=== PATIENT | male | born 1990 | race Two or more races ===

== ENCOUNTER 2022-11-14 12:09 | Emergency (ER) | payer SELFPAY ==
--- NOTE | ~2022-11-14 | CT_ITS ---
EXAMINATION: CT ABDOMEN AND PELVIS WITHOUT CONTRAST CLINICAL INFORMATION: 32-year-old male with right flank and right lower quadrant pain and hematuria. COMPARISON: None TECHNIQUE: Multidetector volumetric imaging was performed from the superior aspect of the liver through the pubic symphysis. Sagittal and coronal reformatted images were obtained on the technologist's workstation. This CT examination was performed using dose optimization techniques as appropriate, variously including the following: *Automated exposure control *Adjustment of mA and/or kV according to patient size (this includes techniques or standardized protocols for targeted exams where dose is matched to indication/reason for exam; i.e. extremities or head) *Use of iterative reconstruction technique DLP: 776 mGy-cm FINDINGS: LUNG BASES: Unremarkable. LIVER: The liver has normal size, shape, and attenuation. No evidence of liver mass. GALLBLADDER AND BILIARY TREE: Gallbladder is without radiopaque stones, wall thickening or pericholecystic fluid. No dilated bile ducts. PANCREAS: Normal. No edema, pancreatic ductal dilatation or mass. SPLEEN: Normal. ADRENAL GLANDS: Normal. KIDNEYS AND URETERS: The kidneys have normal size, attenuation and cortical thickness. No perinephric edema or perinephric fluid collection. Mild left hydronephrosis and proximal hydroureter are caused by a stone of approximately 0.2 x 0.4 x 0.5 cm size at the L2-L3 level of the proximal ureter. No right sided hydronephrosis. No evidence of right sided urinary tract stones. Multiple phleboliths are present within the lower pelvis. However, there are no convincing stones in either distal ureter BLADDER: Unremarkable. BOWEL AND PERITONEUM: Stomach is unremarkable. No dilated loops of bowel. The appendix is normal. No overt bowel wall thickening or mesenteric fat stranding. No free fluid or pneumoperitoneum. ABDOMINAL WALL: There is mild protrusion of fat into the umbilicus. VASCULATURE: Unremarkable. LYMPH NODES: No pathologic sized lymph nodes in the abdomen or pelvis. No inguinal lymphadenopathy. PELVIC VISCERA: Prostate gland is normal. No pelvic mass or pelvic free fluid. MUSCULOSKELETAL: Unremarkable. CT/CT abdomen pelvis wo IV con IMPRESSION: * Mild left hydroureteronephrosis is caused by a stone within the proximal ureter. There is no right-sided hydronephrosis. * Urinary bladder is unremarkable.
--- NOTE | 2022-11-14 12:32 | ED.ABDPAIN ---
HPI - Abdominal Pain General Chief Complaint: Abdominal Pain <KIMBER Mohan - Last Filed: 11/14/22 12:38> Stated Complaint: Blood in urine/Lower abd pain <KIMBER Mohan - Last Filed: 11/14/22 12:38> Time Seen by Provider: 11/14/22 14:40 <KIMBER Mohan - Last Filed: 11/14/22 12:38> Source: patient <Rhina Saunders NP - Last Filed: 11/14/22 16:45> Mode of arrival: ambulatory <Rhina Saunders NP - Last Filed: 11/14/22 16:45> Limitations: no limitations <FARHAT Hanson Last Filed: 11/14/22 16:45> History of Present Illness HPI narrative: 32-year-old male with a history of asthma here with sudden onset left flank pain with radiation to the left lower abdomen which began earlier today. Patient tells me now pain is improved. Still has slight discomfort but overall much better. No associated nausea, vomiting, diarrhea, urinary symptoms. Noted some blood in the urine. Patient denies penile discharge, testicular pain, dysuria or frequency <FARHAT Hanson Last Filed: 11/14/22 16:45> Related Data Home Medications: Previous Rx's Medication Instructions Recorded ibuprofen 600 mg tablet 600 mg PO Q8H PRN pain #30 tabs 11/14/22 oxycodone 5 mg tablet 5 mg PO Q8H PRN pain #8 tabs 11/14/22 tamsulosin 0.4 mg capsule (Flomax) 0.4 mg PO DAILY #30 caps 11/14/22 <KIMBER Mohan - Last Filed: 11/14/22 12:38> Allergies/Adverse Reactions: Allergies Allergy/AdvReac Type Severity Reaction Status Date / Time No Known Allergies Allergy Verified 11/14/22 12:33 <KIMBER Mohan Last Filed: 11/14/22 12:38> Review of Systems Review of Systems Yes all other systems are reviewed and are negative <FARHAT Hanson Last Filed: 11/14/22 16:45> Constitutional: Reports no additional constitutional complaints, Denies body ache(s), Denies chills, Denies fever(s), Denies headache(s) and Denies weakness <Rhina Saunders NP - Last Filed: 11/14/22 16:45> Eyes: Reports no additional eye complaints and Denies change in vision <Rhina Saunders NP - Last Filed: 11/14/22 16:45> Reports system reviewed and no additional complaints, except as documented, Denies dizziness, Denies headache(s), Denies nasal congestion, Denies nasal discharge and Denies neck pain <Rhina Saunders NP - Last Filed: 11/14/22 16:45> Cardiovascular: Reports no additional cardiovascular complaints, Denies chest pain, Denies leg edema and Denies dyspnea <Rhina Saunders NP - Last Filed: 11/14/22 16:45> Respiratory: Reports no additional respiratory complaints, Denies cough and Denies dyspnea <Rhina Saunders NP - Last Filed: 11/14/22 16:45> Gastrointestinal: Reports no additional gastrointestinal complaints, Reports abdominal pain, Denies diarrhea, Denies nausea and Denies vomiting <Rhina Saunders NP - Last Filed: 11/14/22 16:45> Genitourinary: Denies urinary incontinence <Rhina Saunders NP - Last Filed: 11/14/22 16:45> Musculoskeletal: Reports no additional musculoskeletal complaints, Reports back pain, Denies arthralgias, Denies joint swelling, Denies neck pain, Denies numbness and Denies tingling <Rhina Saunders NP - Last Filed: 11/14/22 16:45> Skin/Breast: Reports system reviewed and no additional complaints, except as docu and Denies rash <Rhina Saunders NP - Last Filed: 11/14/22 16:45> Reports system reviewed and no additional complaints, except as documented, Denies dizziness, Denies headache(s), Denies numbness, Denies tingling and Denies weakness <Rhina Saunders NP - Last Filed: 11/14/22 16:45> PMFSH Past Medical History Attestation statement: The following information was validated with the patient. <Rhina Saunders NP - Last Filed: 11/14/22 16:45> Source: old records reviewed and nursing notes reviewed <Rhina Saunders NP - Last Filed: 11/14/22 16:45> Social History Social History: Social History Advance Directives: Yes Advance Directives Information Provided: Yes Advance Directives on File: No <KIMBER Mohan - Last Filed: 11/14/22 12:38> Physical Exam ED Vital Signs: Vital Signs - 24 hr 11/14/22 12:34 Temperature 97.4 F Pulse Rate 77 Respiratory Rate 18 Blood Pressure 144/99 H Pulse Oximetry 98 Oxygen Delivery Method Room Air BMI result Body Mass Index 36.6 <KIMBER Mohan - Last Filed: 11/14/22 12:38> Vital Signs - 24 hr 11/14/22 12:34 Temperature 97.4 F Pulse Rate 77 Respiratory Rate 18 Blood Pressure 144/99 H Pulse Oximetry 98 Oxygen Delivery Method Room Air BMI result Body Mass Index 36.6 <Rhina Saunders NP - Last Filed: 11/14/22 16:45> Const General: cooperative, healthy appearing, comfortable and no acute distress <Rhina Saunders NP - Last Filed: 11/14/22 16:45> Orientation/consciousness: patient oriented x3 <Rhina Saunders NP - Last Filed: 11/14/22 16:45> Limitations: no limitations <Rhina Saunders NP - Last Filed: 11/14/22 16:45> HENMT Head: Yes normal to inspection <Rhina Saunders NP - Last Filed: 11/14/22 16:45> Ears: hearing grossly normal bilaterally <Rhina Saunders NP - Last Filed: 11/14/22 16:45> Eyes General: appearance normal, both eyes and all related structures <Rhina Saunders NP - Last Filed: 11/14/22 16:45> Neck Neck: Yes normal visual inspection <Rhina Saunders NP - Last Filed: 11/14/22 16:45> Chest Chest palpation & inspection: normal inspection of the chest <Rhina Saunders NP - Last Filed: 11/14/22 16:45> Resp Effort & Inspection: normal respiratory effort <Rhina Saunders NP - Last Filed: 11/14/22 16:45> Auscultation: clear to auscultation bilaterally <Rhina Saunders NP - Last Filed: 11/14/22 16:45> Cardio Rate: regular rate <Rhina Saunders NP - Last Filed: 11/14/22 16:45> Rhythm: regular rhythm <Rhina Saunders NP - Last Filed: 11/14/22 16:45> Peripheral pulses: Peripheral pulses 2+ throughout <Rhina Saunders NP - Last Filed: 11/14/22 16:45> GI Inspection: Yes normal to inspection <Rhina Saunders NP - Last Filed: 11/14/22 16:45> Palpation (GI): Soft to palpation and Tenderness to palpation present (GI) (LLQ-no rebound or guard) <Rhina Saunders NP - Last Filed: 11/14/22 16:45> General: Yes CVA tenderness (Left) <Rhina Saunders NP - Last Filed: 11/14/22 16:45> Back/Spine/Pelvis Back: CVA tenderness (Left) <Rhina Saunders NP - Last Filed: 11/14/22 16:45> Thoracic/Lumbar Spine: thoracic and lumbar spine normal to inspection <hRina Saunders NP - Last Filed: 11/14/22 16:45> Neuro General: patient oriented x3 <Rhina Saunders NP - Last Filed: 11/14/22 16:45> Course Course Course Narrative: RME--32 yo M w/no sig PMHx c/o hematuria w/ suprapubic/RLQ abd pain radiating to R flank x yesterday. Denies fever, chills, dysuria denies excessive working out/exercises R CVAT and R sided abd ttp noted on exam UA, Labs, CTAP and IVF ordered <KIMBER Mohan - Last Filed: 11/14/22 12:38> Reevaluation(s) Reevaluation #1: CT shows left renal colic. UA shows microscopic hematuria. No signs of infection. Labs are unremarkable. Patient reports pain has improved since being here. Will give IM Toradol and reassess. <Rhina Saunders NP - Last Filed: 11/14/22 16:45> Reevaluation #2: 1615-patient with pain well controlled. Tolerating p.o.. Patient be discharged home with urology follow-up and strict return precautions. Reviewed worrisome signs and symptoms when to return to the emergency room. Comfortable plan for discharge home. <Rhina Saunders NP - Last Filed: 11/14/22 16:45> Medical Decision Making Medical Decision Making [facility] Narrative: 32-year-old male here with left flank pain with radiation to the left lower abdomen with hematuria with sudden onset Will check labs, UA, CT. Will provide analgesia <Rhina Saunders NP - Last Filed: 11/14/22 16:45> Differential Diagnosis Differential Diagnoses: The differential diagnosis associated with the presentation includes <Rhina Saunders NP - Last Filed: 11/14/22 16:45> Renal colic <Rhina Saunders NP - Last Filed: 11/14/22 16:45> Lab Data [facility] Lab Attestation statement: I reviewed the patient's lab results. <Rhina Saunders NP - Last Filed: 11/14/22 16:45> Result Diagrams: : 11/14/22 12:48 11/14/22 12:48 <KIMBER Mohan - Last Filed: 11/14/22 12:38> Labs: Lab Results 11/14/22 11/14/22 11/14/22 Range/Units 12:48 12:48 13:13 WBC 4.5 L (4.8-10.8) X10*3/uL RBC 4.93 (4.60-5.80) X10*6/uL Hgb 13.7 L (14.0-18.0) g/dl Hct 41.1 L (42.0-52.0) % MCV 83.4 (80.0-98.0) fL MCH 27.8 (27.0-33.0) pg MCHC 33.3 (31.0-36.0) g/dl RDW 12.8 (11.0-16.0) % Plt Count 230 (160-400) X10*3/uL MPV 9.9 (9.4-12.4) fL Immature Gran % (Auto) 0.2 (0.0-0.4) % Neut % (Auto) 46.7 (45-73) % Lymph % (Auto) 40.0 (20-40) % [place] % (Auto) 10.6 (2-11) % Eos % (Auto) 1.6 (0-4) % Baso % (Auto) 0.9 (0-2) % Lymph # (Auto) 1.8 (1.2-4.9) X10*3/uL [place] # (Auto) 0.5 (0.1-1.2) X10*3/uL Eos # (Auto) 0.1 (0.0-0.4) X10*3/uL Baso # (Auto) 0.0 (0.0-0.2) X10*3/uL Abs Immat Gran (auto) 0.01 (0.00-0.03) X10*3/uL Absolute Neuts (auto) 2.1 (2.0-8.3) x10*3/uL Absolute Nucleated RBC 0.000 (0.0-0.012) X10*3/uL Nucleated RBC % (auto) 0.0 (0.0-0.2) /100WBC Sodium 138 (135-145) mmol/L Potassium 4.4 (3.3-5.1) mmol/L Chloride 104 (96-108) mmol/L Carbon Dioxide 29 (22-29) mmol/L Anion Gap 9 L (12-20) BUN 12 (9-16) mg/dL Creatinine 1.37 (0.5-1.4) mg/dL Estim Creat Clear Calc 97.4 Estimated GFR > 60 Random Glucose 88 (60-115) mg/dL Calcium 9.7 (8.4-10.2) mg/dL Total Bilirubin 0.4 (0.0-1.0) mg/dL Direct Bilirubin < 0.2 (0.0-0.5) mg/dL AST 28 (5-37) U/L ALT 34 (0-40) U/L Alkaline Phosphatase 65 (39-117) U/L Total Creatine Kinase 229 H (38-174) U/L Total Protein 7.4 (6.5-8.0) g/dL Albumin 4.3 (3.5-5.0) g/dL Lipase 17 (8-78) U/L Urine Color Dark Yellow Urine Appearance Cloudy Urine pH 8.0 (5.0-9.0) Ur Specific [place] 1.020 (1.005-1.025) Urine Protein Trace (Neg-Trace) mg/dL Urine Glucose (UA) Negative (Negative) mg/dL Urine Ketones Negative (Negative) mg/dL Urine Blood Large (3+) H (Negative) Urine Nitrite Negative (Negative) Ur Leukocyte Esterase Negative (Negative) Urine RBC >20 H (0-2) /HPF Urine WBC 0-5 (0-5) /HPF Ur Squamous Epith Cells 0-2 (0-2) /HPF Urine Bacteria None Seen (None Seen) Hyaline Casts 0-2 (0-2) /LPF <KIMBER Mohan - Last Filed: 11/14/22 12:38> Lab Results 11/14/22 11/14/22 11/14/22 Range/Units 12:48 12:48 13:13 WBC 4.5 L (4.8-10.8) X10*3/uL RBC 4.93 (4.60-5.80) X10*6/uL Hgb 13.7 L (14.0-18.0) g/dl Hct 41.1 L (42.0-52.0) % MCV 83.4 (80.0-98.0) fL MCH 27.8 (27.0-33.0) pg MCHC 33.3 (31.0-36.0) g/dl RDW 12.8 (11.0-16.0) % Plt Count 230 (160-400) X10*3/uL MPV 9.9 (9.4-12.4) fL Immature Gran % (Auto) 0.2 (0.0-0.4) % Neut % (Auto) 46.7 (45-73) % Lymph % (Auto) 40.0 (20-40) % [place] % (Auto) 10.6 (2-11) % Eos % (Auto) 1.6 (0-4) % Baso % (Auto) 0.9 (0-2) % Lymph # (Auto) 1.8 (1.2-4.9) X10*3/uL [place] # (Auto) 0.5 (0.1-1.2) X10*3/uL Eos # (Auto) 0.1 (0.0-0.4) X10*3/uL Baso # (Auto) 0.0 (0.0-0.2) X10*3/uL Abs Immat Gran (auto) 0.01 (0.00-0.03) X10*3/uL Absolute Neuts (auto) 2.1 (2.0-8.3) x10*3/uL Absolute Nucleated RBC 0.000 (0.0-0.012) X10*3/uL Nucleated RBC % (auto) 0.0 (0.0-0.2) /100WBC Sodium 138 (135-145) mmol/L Potassium 4.4 (3.3-5.1) mmol/L Chloride 104 (96-108) mmol/L Carbon Dioxide 29 (22-29) mmol/L Anion Gap 9 L (12-20) BUN 12 (9-16) mg/dL Creatinine 1.37 (0.5-1.4) mg/dL Estim Creat Clear Calc 97.4 Estimated GFR > 60 Random Glucose 88 (60-115) mg/dL Calcium 9.7 (8.4-10.2) mg/dL Total Bilirubin 0.4 (0.0-1.0) mg/dL Direct Bilirubin < 0.2 (0.0-0.5) mg/dL AST 28 (5-37) U/L ALT 34 (0-40) U/L Alkaline Phosphatase 65 (39-117) U/L Total Creatine Kinase 229 H (38-174) U/L Total Protein 7.4 (6.5-8.0) g/dL Albumin 4.3 (3.5-5.0) g/dL Lipase 17 (8-78) U/L Urine Color Dark Yellow Urine Appearance Cloudy Urine pH 8.0 (5.0-9.0) Ur Specific [place] 1.020 (1.005-1.025) Urine Protein Trace (Neg-Trace) mg/dL Urine Glucose (UA) Negative (Negative) mg/dL Urine Ketones Negative (Negative) mg/dL Urine Blood Large (3+) H (Negative) Urine Nitrite Negative (Negative) Ur Leukocyte Esterase Negative (Negative) Urine RBC >20 H (0-2) /HPF Urine WBC 0-5 (0-5) /HPF Ur Squamous Epith Cells 0-2 (0-2) /HPF Urine Bacteria None Seen (None Seen) Hyaline Casts 0-2 (0-2) /LPF <Rhina Saunders NP - Last Filed: 11/14/22 16:45> Independent Interpretation I performed an independent interpretation of an: CT Scan (Independently reviewed CT scan which shows left renal colic at the proximal ureter) <Rhina Saunders NP - Last Filed: 11/14/22 16:45> Radiology Impression Discussion of test interpretation with radiology: I have reviewed the radiologist's reading. <Rhina Saunders NP - Last Filed: 11/14/22 16:45> Radiologist Impression: FINDINGS: LUNG BASES: Unremarkable. LIVER: The liver has normal size, shape, and attenuation.? No evidence of liver mass. GALLBLADDER AND BILIARY TREE: Gallbladder is without radiopaque stones, wall thickening or pericholecystic fluid.? No dilated bile ducts. PANCREAS: Normal. No edema, pancreatic ductal dilatation or mass.? SPLEEN: Normal.? ADRENAL GLANDS: Normal.? KIDNEYS AND URETERS: The kidneys have normal size, attenuation and cortical thickness. No perinephric edema or perinephric fluid collection. Mild left hydronephrosis and proximal hydroureter are caused by a stone of approximately 0.2 x 0.4 x 0.5 cm size at the L2-L3 level of the proximal ureter. No right sided hydronephrosis. No evidence of right sided urinary tract stones. Multiple phleboliths are present within the lower pelvis. However, there are no convincing stones in either distal ureter BLADDER:? Unremarkable. BOWEL AND PERITONEUM: Stomach is unremarkable. No dilated loops of bowel. The appendix is normal. No overt bowel wall thickening or mesenteric fat stranding. No free fluid or pneumoperitoneum. ABDOMINAL WALL: There is mild protrusion of fat into the umbilicus.? VASCULATURE: Unremarkable. LYMPH NODES: No pathologic sized lymph nodes in the abdomen or pelvis. No inguinal lymphadenopathy. PELVIC VISCERA: Prostate gland is normal. No pelvic mass or pelvic free fluid. MUSCULOSKELETAL: Unremarkable.? CT/CT abdomen pelvis wo IV con IMPRESSION: *? Mild left hydroureteronephrosis is caused by a stone within the proximal ureter.? There is no right-sided hydronephrosis. *? Urinary bladder is unremarkable. ? <Rhina Saunders NP - Last Filed: 11/14/22 16:45> Medications Administered Discontinued Medications Generic Name Dose Route Start Last Admin Trade Name Freq PRN Reason Stop Dose Admin Sodium Chloride 1,000 mls @ 999 mls/hr 11/14/22 12:45 11/14/22 16:29 Ns IV 11/14/22 13:45 Infused .Q1H1M CINTIA Infusion Ketorolac Tromethamine 30 mg 11/14/22 14:46 11/14/22 15:15 Ketorolac Tromethamine 30 Mg/Ml Vial IM 11/14/22 14:47 30 mg ONCE ONE Administration <KIMBER Mohan - Last Filed: 11/14/22 12:38> Medications Administered Discontinued Medications Generic Name Dose Route Start Last Admin Trade Name Freq PRN Reason Stop Dose Admin Sodium Chloride 1,000 mls @ 999 mls/hr 11/14/22 12:45 11/14/22 16:29 Ns IV 11/14/22 13:45 Infused .Q1H1M CINTIA Infusion Ketorolac Tromethamine 30 mg 11/14/22 14:46 11/14/22 15:15 Ketorolac Tromethamine 30 Mg/Ml Vial IM 11/14/22 14:47 30 mg ONCE ONE Administration <Rhina Saunders NP - Last Filed: 11/14/22 16:45> Discharge Plan Discharge Clinical Impression: Calculus of kidney <KIMBER Mohan Last Filed: 11/14/22 12:38> Patient Disposition: Home, Self-Care <KIMBER Mohan Last Filed: 11/14/22 12:38> Instructions: Kidney Stones (ED) <KIMBER Mohan Last Filed: 11/14/22 12:38> Additional Instructions: Take the medications prescribed Return for severe pain, vomiting, fever Follow-up with urology as discussed <KIMBER Mohan - Last Filed: 11/14/22 12:38> Prescriptions: New tamsulosin [Flomax] 0.4 mg capsule 0.4 mg PO DAILY Qty: 30 0RF ibuprofen 600 mg tablet 600 mg PO Q8H PRN (Reason: pain) Qty: 30 0RF oxycodone 5 mg tablet 5 mg PO Q8H PRN (Reason: pain) Qty: 8 0RF Rx Instructions: Partial Fill upon patient request. <KIMBER Mohan - Last Filed: 11/14/22 12:38> Referrals: Manny Jones MD [Physician] - 1 week <KIMBER Mohan - Last Filed: 11/14/22 12:38> Stand Alone Forms: Work/School Release <KIMBER Mohan - Last Filed: 11/14/22 12:38> Interventions: ED Discharge Assessment Last Done: 11/14/22 16:34 <KIMBER Mohan - Last Filed: 11/14/22 12:38> Discharge Date/Time: 11/14/22 16:35 <KIMBER Mohan - Last Filed: 11/14/22 12:38>
[2022-11-14 12:34] VITALS: BP 144/99; PULSE 77; RESP 18; TEMP 36.3; O2SAT 98; BMI 36.6
[2022-11-14 12:52] LABS: MANUAL DIFF FLAG NO
[2022-11-14 12:57] LABS: Basophils Percent Auto 0.9 % (0-2); Eosinophils Absolute Auto 0.1 X10*3/uL (0.0-0.4); Eosinophils Percent Auto 1.6 % (0-4); Hematocrit 41.1 % (42.0-52.0); Hemoglobin 13.7 g/dl (14.0-18.0); Imm Gran Abs Auto 0.01 X10*3/uL (0.00-0.03); Imm Gran Pct Auto 0.2 % (0.0-0.4); Lymphocytes Absolute Auto 1.8 X10*3/uL (1.2-4.9); Mean Corpuscular HGB Conc 33.3 g/dl (31.0-36.0); Mean Corpuscular Hemoglobin 27.8 pg (27.0-33.0); Mean Corpuscular Volume 83.4 fL (80.0-98.0); Mean Platelet Volume 9.9 fL (9.4-12.4); Monocytes Absolute Auto 0.5 X10*3/uL (0.1-1.2); Monocytes Percent Auto 10.6 % (2-11); Neutrophils Absolute Auto 2.1 x10*3/uL (2.0-8.3); Neutrophils Percent Auto 46.7 % (45-73); Platelet Count 230 X10*3/uL (160-400); Red Blood Count 4.93 X10*6/uL (4.60-5.80); Red Cell Distribution Width 12.8 % (11.0-16.0); White Blood Count 4.5 X10*3/uL (4.8-10.8)
[2022-11-14 13:14] LABS: Alanine Aminotransferase 34 U/L (0-40); Albumin Level 4.3 g/dL (3.5-5.0); Alkaline Phosphatase 65 U/L (39-117); Anion Gap 9 (12-20); Aspartate Amino Transferase 28 U/L (5-37); Bilirubin Direct < 0.2 mg/dL (0.0-0.5); Bilirubin Total 0.4 mg/dL (0.0-1.0); Blood Urea Nitrogen 12 mg/dL (9-16); Calcium 9.7 mg/dL (8.4-10.2); Carbon Dioxide 29 mmol/L (22-29); Chloride 104 mmol/L (96-108); Creatinine Clr Calc Pharmacy 97.4; Estimated Glomerular Filt Rate > 60; Glucose Random 88 mg/dL (60-115); Lipase 17 U/L (8-78); Potassium 4.4 mmol/L (3.3-5.1); Sodium 138 mmol/L (135-145); Total Protein 7.4 g/dL (6.5-8.0)
[2022-11-14 13:25] LABS: Appearance Urine Cloudy; Glucose Urine UA Negative (Negative); Leukocyte Esterase Urine Negative (Negative); Nitrite Urine Negative (Negative); UMIC TRIGGER UACC YES; Urine Blood Large (3+) (Negative); Urine Ketones Negative (Negative); Urine Protein Trace mg/dL (Neg-Trace)
[2022-11-14 13:26] LABS: Color Urine Dark Yellow
[2022-11-14 13:29] LABS: Bacteria Urine None Seen (None Seen); Hyaline Casts Urine 0-2 /LPF (0-2); RBC Urine >20 /HPF (0-2); Squamous Epithelial Cell Urine 0-2 /HPF (0-2); WBC Urine 0-5 /HPF (0-5)
[2022-11-14] MEDS: 0.9 % Sodium Chloride 1,000 ML 999 ML IV (15:13)
[2022-11-14] MEDS: Ketorolac Tromethamine 30 MG/ML VIAL IM (15:15)
== END 2022-11-14 16:35 | disposition home or self-care (01) ==
PROVIDERS: Physician Assistant; Emergency Provider Emergency Medicine
DX: N13.2 Hydronephrosis with renal and ureteral calculous obstruction (principal)
CPT/HCPCS: 36415; 74176; 80048; 80076; 81001; 82550; 83690; 85025; 96360; 96372; 99284; J1885

== ENCOUNTER 2025-10-23 15:35 | Emergency (ER) | payer MEDICAID, SELFPAY ==
--- OUTSIDE RECORDS SUMMARY | 2024-08-13 08:40 | XMS_ITS ---
Author Organization [facility] Address [address] [place] [id number] Care Team Providers Care It Support Specialist Name Role Phone Piper Gonzalez Primary Care Provider REASON FOR VISIT PE, Visit Planning Encounters Encounter Location Date Provider Diagnosis [address] [phone] 08/13/2024 Piper Grimes Plan Of Treatment No Information Progress Notes * Orestes YARBROUGH ADOB:[birth year] (35 yo M)Acc No.[id number]:08/13/2024 PROGRESS NOTES Patient: Orestes PAIGE Provider: KASSANDRA Evans :1990 A ge:34 Y S ex:Male Date:08/13/2024 Address:[address] [place], [place] [id number] Subjective: * Chief Complaints: * 1 . PE. 2. Visit Planning. * HPI: P revention: MA Visit Planning D ue for _ ,PE,Tobacco use cessation intervention 12+. P rovider Visit Planning : . * Medical History: Objective: * Vitals: * Physical Examination: Assessment: Plan: * Treatment: * Billing Information: * Visit Code: * Procedure Codes: * The named appointment provid er may or may not be the originator of this progress note, and it is not deemed complete until electronically signed by the appointment provider. Sign off status: Pending * Provider: KASSANDRA Evans Date: 1 Generated for Nava bustillos/Shivani/Donnie on: 12/24/2024 08:48 PM EST History and Physical Notes * HPI (History of Present Illness) Category Sub-Category Detail Notes Category Not es Prevention MA Visit Planning Due for: _,PE, Tobacco use cessation intervention 12+ Provider Visit Planning :
--- NOTE | ~2025-10-23 | XR_ITS ---
EXAMINATION: XR CHEST CLINICAL INFORMATION: lung pain COMPARISON: None available. TECHNIQUE: 2 views of the chest were obtained. FINDINGS: The cardiac, hilar, and mediastinal contours are normal. The lungs are clear bilaterally. There is no pneumothorax or pleural effusion. There is no focal osseous or soft tissue abnormality. XR/XR chest 2V IMPRESSION: Normal chest. Electronically signed by: Ivan Camacho MD 10/23/2025 05:[address] [facility]
[2025-10-23 16:25] VITALS: BP 156/82; PULSE 79; RESP 18; TEMP 36.6; O2SAT 96; BMI 35.5
--- NOTE | 2025-10-23 16:28 | ED_ITS ---
HPI - General Adult General Chief complaint: General Medical Stated complaint: shooting pain head, lungs, liver Time Seen by Provider: 10/23/25 19:03 Source: patient Mode of arrival: ambulatory Limitations: no limitations History of Present Illness ED Provider: Lucy Colin PA-C HPI narrative: Patient is a 35 year old male with no reported medical history presenting to the emergency department today with right sided lung pain with breathing. Patient states that he has had cold like symptoms and right sided lung pain with deep breathing. Patient denies any shortness of breath or difficultly breathing. Patient denies any chest pain. Patient denies any other complaints at this time. Related Data Previous Rx's ?Medication ?Instructions ?Recorded ibuprofen 600 mg tablet 600 mg PO Q8H PRN pain #30 t abs 11/14/22 oxycodone 5 mg tablet 5 mg PO Q8H PRN pain #8 tabs 11/14/22 tamsulosin 0.4 mg capsule (Flomax) 0.4 mg PO DAILY #30 caps 11/14/22 Allergies Allergy/AdvReac Type Severity Reaction Status Date / Time No Known Allergies Allergy Verified 10/23/25 16:28 Review of Systems Constitutional: Constitutional: Reports as per HPI Eyes: Eyes: Reports as per HPI ENT: Reports as per HPI Cardiovascular: Cardiovascular: Reports as per HPI Respiratory: Respiratory: Reports as per HPI Gastrointestinal: Gastrointestinal: Reports as per HPI Genitourinary: Genitourinary: Reports as per HPI Musculoskeletal: Musculoskeletal: Reports as per HPI Integumentary/Breasts: Skin/Breast: Reports as per HPI Neurologic: Reports as per HPI Psychiatric: Psychiatric: Reports as per HPI Endocrine: Endocrine: Reports as per HPI Hematologic/Lymphatic: Hematologic/Lymphatic: Reports as per HPI Allergic/Immunologic: Allergic/Immunologic: Reports as per HPI [facility] Past Medical History Attestation statement: The following information was validated with the patient. Source: old records reviewed and nursing notes reviewed Social History Social History Advance Directives: No Advance Directives Information Provided: No Physical Exam ED Vital Signs: Vital Signs - 24 hr 10/23/25 16:25 10/23/25 19:04 10/23/25 19:26 Temperature 97.8 F 98.1 F 98.1 F Pulse Rate 79 77 77 Respiratory Rate 18 18 18 Blood Pressure 156/82 H 140/75 H 140/75 H Pulse Oximetry 96 96 96 Oxygen Delivery Method Room Air Room Air Room Air BMI result Body Mass Index 35.5 Const General: cooperative, no acute distress, alert and awake Nutritional Appearance: well nourished Orientation/consciousness: patient oriented x3 HENMT Head: Yes normal to inspection and Yes atraumatic Ears: hearing grossly normal bilaterally and external ears normal General nose exam: Normal external nose present, no nasal discharge noted and no epistaxis Face and sinus: Yes normal facial exam, No abrasion and No laceration Mouth: Normal oral and palatal mucosa present, no drooling and no muffled voice Eyes General: appearance normal, both eyes and all related structures Periorbital: periorbital findings normal Eyelids: Yes eyelids normal Conjunctivae: conjunctivae normal Pupils: Equal, round and reactive pupils present EOM: EOMs intact bilaterally Neck Neck: Yes normal visual inspection and Yes full ROM Resp Effort & Inspection: normal respiratory effort and able to speak in complete sentences Neuro General: patient oriented x3, moves all extremities and CN's II-XI intact bilaterally Cranial nerves: Yes Equal, round and reactive pupils present Cognition (Neuro): normal cognition Extrem General: Yes normal to inspection, Yes full ROM and Yes capillary refill normal Psych Appearance: grossly normal Mental Status: mental status grossly normal Affect: normal affect Attitude: cooperative Thought process: Normal thought process present Thought content: Normal thought content present Insight: Good insight present (Psych) Course Course Course Narrative: Rapid medical examination performed in triage by Lucy Colin PA-C: Patient is a 35 year old assigned male at presenting to the emergency department with right sided lung pain that is worse with deep breathing. Det nina physical exam and review of systems are deferred to the director of primary. Imaging and swabs ordered. Patient placed back in the waiting room pending room availability and results. Medical Decision Making Medical Decision Making MDM Narrative: Patient is a 35 year old male with no reported medical history presenting to the emergency department today with right sided lung pain with breathing. Patient's physical exam was as noted in the physical exam portion of this note. Patient's chest x-ray showed no acute process. Patient's COVID-19, influenza, and RSV testing was negative. Patient's clinical presentation is most consistent with a viral illness. I explained my physical exam findings as well as all test results to the patient. I answered all questions asked by the patient. I stressed the importance of the patient taking his medication as directed (either prescribed or as the over the counter packaging recommends). I stressed the importance of the patient following up with his primary care provider. I stressed the importance of the patient returning to the emergency department immediately if his symptoms were to worsen or if he were to develop any dizziness, shortness of breath, difficulty breathing, chest pain, blurry vision, loss of vision, nausea, vomiting, abdominal pain, fever, chills, back pain, or any other complaints. Patient verbalized agreement and understanding with this treatment plan and discharge. Differential Diagnosis Differential Diagnoses: The differential diagnosis associated with the presentation includes Viral illness COVID-19 Influenza RSV PNA Admission/Observation Consideration of admission/observation: Escalation of care including admission/observation considered Patient would have been admitted to the hospital had his work up had any findings where hospital admission was appropriate and his clinical presentation warranted hospital admission. Lab Data [facility] Lab Attestation statement: I reviewed the patient's lab results. My interpretation of these results are in the [facility] Rationale portion of this note. Labs: Lab Results 10/23/25 Range/Units 16:36 Influenza Type A (PCR) NEGATIVE (Negative) Influenza Type B (PCR) NEGATIVE (Negative) RSV RNA Qual (PCR) NEGATIVE (Negative) SARS-CoV-2 RNA (RT-PCR) NEGATIVE (Negative) Independent Interpretation I performed an independent interpretation of an: Plain X-Ray Interpretation: My interpretation is in agreement with the radiologist's impression of this imaging study as written below. EXAMINATION: XR CHEST CLINICAL INFORMATION: lung pain COMPARISON: None available. TECHNIQUE: 2 views of the chest were obtained. FINDINGS: The cardiac, hilar, and mediastinal contours are normal. The lungs are clear bilaterally. There is no pneumothorax or pleural effusion. There is no focal osseous or soft tissue abnormality. XR/XR chest 2V IMPRESSION: Normal chest. Electronically signed by: Ivan Camacho MD 10/23/2025 05:07 PM [facility] Dictated By: Ivan Camacho MD Signed By: Electronically signed by Ivan Camacho MD 10/23/25 1700 Radiology Impression Discussion of test interpretation with radiology: I have reviewed the radiologis t's reading. Discharge Plan Discharge Clinical Impression: Viral illness Patient Disposition: Home, Self-Care Instructions: Viral Syndrome (ED) Additional Instructions: Your chest x-ray showed no evidence pneumonia. You were negative for COVID-19, influenza, and RSV. IF you are prescribed home medications and/or you are taking over the counter medications at home - it is very important you continue to do so as prescribed / directed unless told otherwise by a healthcare provider. Follow up with your primary care provider. Do your best to stay well hydrated and rest. Return to the emergency department immediately if your symptoms worsen or if you develop any numbness, tingling, dizziness, shortness of breath, difficulty breathing, chest pain, blurry vision, loss of vision, nausea, vomiting, abdominal pain, fever, chills, back pain, or any other complaints. If you do not have a primary care provider - call any of the below numbers to establish and follow up with a primary care provider. [facility] Primary Care ([place]) [phone] [place] [address], [address] [facility] Primary Care ([address] [place]) [phone] [place] [address], [address] [facility], [address] [facility] Primary Care ([address] [place]) [phone] [place] [address], [address] [facility], [address] [facility] Primary Care ([place]) [phone] [place] [address], [address] [facility], [address] [facility] Family Medicine [phone] [address] [facility], [address] Please see the information below about our Patient Portal. If you are not yet enrolled in the [facility] Patient Portal, you will receive an enrollment email invitation following your visit to any [facility] care setting. You may also self-enroll in the Patient Portal by visiting our website: [email or web address] The following information is required to access the Patient Portal: - Your [facility] Medical Record Number - Your personal home email address (must match what is in your electronic medical record, Registration staff can assist with this) - Name - Date of Capabilities of the Patient Portal: - Message some providers - View upcoming appointments - Access your health summary, medical history, and visit history - View current conditions and allergies - View procedure and lab results - View your medications, including guidelines, side effects, and precautions - Complete pre-appointment questionnaires requested by your provider - Ready summary reports of your office visits and procedures To access the Patient Portal Mobile [employer], follow these directions: - Search [employer] in the [employer] Store or [employer] Store - Download the [employer] - Search for [facility] - Enter your login/password Prescriptions: No Action tamsulosin [Flomax] 0.4 mg capsule 0.4 mg PO DAILY Qty: 30 0RF ibuprofen 600 mg tablet 600 mg PO Q8H PRN (Reason: pain) Qty: 30 0RF oxycodone 5 mg tablet 5 mg PO Q8H PRN (Reason: pain) Qty: 8 0RF Rx Instructions: Partial Fill upon patient request. Interventions: ED Discharge Assessment Last Done: 10/23/25 19:26 Discharge Date/Time: 10/23/25 19:27 Print Language: Danish
[2025-10-23 17:47] LABS: Resp Syncy Virus RNA Qual PCR NEGATIVE (Negative); SARS COV2 PCR INHOUSE NEGATIVE (Negative)
[2025-10-23 19:04] VITALS: BP 140/75; PULSE 77; RESP 18; TEMP 36.7; O2SAT 96
[2025-10-23 19:26] VITALS: BP 140/75; PULSE 77; RESP 18; TEMP 36.7; O2SAT 96
--- OUTSIDE RECORDS SUMMARY | 2025-10-23 20:48 | XMS_ITS | Clinical Summary ---
Author Organization [employer] Address [address] [facility] [address] [place] [address] Care Team Providers Care Gradall Operator Name Role Phone Unavailable Primary Care Provider Unavailabl e Social History Tobacco Use Types Packs/Day Years Used Date Smoking Tobacco: Never Assessed Sex and Gender Information Value Date Recorded Sex Assigned at Not on file Legal Sex Male 9:33 PM EDT Gender Identity Not on file Sexual Orientation Not on file Plan of Treatment Health Maintenance Due Date Last Done Comments Depression Screening 1992 HIV Screening 1992 SDOH Screening 1992 Disability Screening 1992 Alcohol/Substance Use Screening 2004 Tobacco Screening 2004 Family Planning (PISQ) 02/01/2007 HPV Vaccines (1 - Male 3-dos e series) 02/01/2007 Hepatitis C Screening 02/01/2010 DTaP/Tdap/Td Vaccines (1 - Tdap) 02/01/2011 Hepatitis B Vaccines (1 of 3 - 19+ 3-dose series) 02/01/2011 COVID-19 Vaccine (1 - 2024-2 6 season) 2025 Influenza Vaccine (#1) 2025 Zoster Vaccines (1 of 2) 02/01/2042 RSV Patients and Pa tients Aged 60 years or older (1 - 1-dose 75+ series) 02/01/2067 HIB Vaccines Aged Out No longer eligi ble based on patient's age to complete this topic Hepatitis A Vaccines Aged Out No long er eligible based on patient's age to complete this topic IPV Vaccines Aged Out No longer eligi ble based on patient's age to complete this topic Meningococcal B Vaccine Aged Out No l onger eligible based on patient's age to complete this topic Meningococcal Vaccine Aged Out No yancy luiz eligible based on patient's age to complete this topic Pneumococcal Vaccine: Pediat rics (0 to 5 Years) and At-Risk Patients (6 to 49) Years Aged Out No longer eligible b ased on patient's age to complete this topic RSV under 20 months Aged Out No longe r eligible based on patient's age to complete this topic Rotavirus Vaccines Aged Out No longer eligible based on patient's age to complete this topic
--- OUTSIDE RECORDS SUMMARY | 2025-10-23 20:48 | XMS_ITS | Patient Health Record ---
Author Organization [employer] [facility] Address [address] [place], [place] [address] Care Team Providers Care Perforator Loader Name Role Phone Piper Gonzalez Primary Care Provider Allergies No Known Allergies Reason For Referral No Information Medications Medication SIG (Take, Route, Frequency, Duration) Notes Start Date End Date Status Metamucil 3.4 g/5.2 g as directed orally once a day; Duration: 7 day(s) GI Active Vitamin D3 50 mcg 1 cap(s) orally once a day; Duration: 30 days 08/22/2023 Active omeprazole 20 mg 1 cap(s) orally once a day; Duration: 30 day(s) GI Not-Santana ing venlafaxine 75 mg 1 tab(s) orally 2 ti mes a day Not-Taking Problems Problem Type SNOMED Code ICD Code Onset Dates Problem Status W/U Status Risk Notes Problem Venereal disease screening (155338544) STD SCREENING (V73.99) Active confirmed Problem Mood disorder (13904446) Mood disorder (F39) Active confirmed Problem Vitamin D deficiency (51697725) Vitamin D deficiency (E55.9) Active confirmed Problem Anxiety about health (899258291) Anxiety about health (F41.8) Active confirmed Problem Alcohol abuse (75078726) Alcohol use disorder, mild, abuse (F10.10) Active confirmed Problem Steatosis of liver (453312210) Hepatic steatosis (K76.0) Active confirmed Problem Leukocytosis (941095665) Leukocytosis, unspecified type (D72.829) Active confirmed Problem Neutropenia (778397626) Neutropenia, unspecified type (D70.9) Active confirmed Problem Skin sensation disturbance (09972327) Complaint of paresthesia (R20.2) Active confirmed Plan Of Treatment No Information Insurance Providers Payer Name Payer Address Payer Phone Subscriber Number Group Number Insured Name Patient Relationship to Insured Coverage Start Date Coverage End Date NHP [employer] (RHE,RHP,E FP,CSN) [address] [address] [place] [address] [phone] [id number] Orestes Yarbrough Self - patient is the insured 3 AE NHP-DO NOT DELETE/NOT FOR BILLING [address] [address] [place] [address] [phone] AENHP Orestes Yarbrough Self - patient is the insured 3 Medical (General) History Medical History History ICD Code anxiety. ADHD dx age 16 Heavy alcohol use starting age 27 left nephrolithiasis 12/2022 Constipation/ ABD pain/ Inco mplete bowel movements- Consult [facility] - 03/02/202302/2023 CT scan ABD- mild colitis , dive rticulosis 03/20/2023 Colonoscopy - nor mal mucosa, sigmoid colon polyp 3mm removed- pathology=hyperplastic change. [facility] 06/2023 ABD - hepatic s teatosis 02/11/2024 EGD normal, biops y - duodenum normal, stomach healing ulceration inactive gastritis negative H. Pylori, Esophagus fragments of ulcerated gastic-type mucosa 09/29/2025 Normal EGD, negative Biopsy Surgical History Surgery Date(Month/Year) Left arm repair of fracture 2001 Hospitalization History Reason Date(Month/Year) see surgical hx gastritis 10/2019
--- OUTSIDE RECORDS SUMMARY | 2025-10-23 20:48 | XMS_ITS | Clinical Summary ---
Author Organization [facility] Address [address] [place] [address] Care Team Providers Care Target Trimmer Name Role Phone No, Pcp MD Primary Care Provider Unavailabl e Allergies No known active allergies Medications No known medications Active Problems No known active problems Social History Tobacco Use Types Packs/Day Years Used Date Smoking Tobacco: Never Sex and Gender Information Value Date Recorded Sex Assigned at Not on file Legal Sex Male 2:56 AM EST Gender Identity Not on file Sexual Orientation Not on file Last Filed Vital Signs Vital Sign Reading Time Taken Comments Blood Pressure 132/93 03/11/2023 6:49 PM EDT Pulse 78 03/11/2023 6:49 PM EDT Temperature 36.4 C (97.5 F) 03/11/2023 6:49 PM EDT Respiratory Rate 16 03/11/2023 6:49 PM EDT Oxygen Saturation 98% 03/11/2023 6:49 PM EDT Inhaled Oxygen Concentration - - Weight 94.8 kg (209 lb) 03/11/2023 4:12 PM EDT Height 175.3 cm (5' 9 ) 03/11/2023 4:12 PM EDT Body Mass Index 30.86 03/11/2023 4:12 PM EDT Plan of Treatment Health Maintenance Due Date Last Done Comments INFLUENZA VACCINE (#1) 2025 COVID-19 IMMUNIZATION ( season) 2025 DTAP/TDAP/TD VACCINES (3 - T d or Tdap) 06/03/2028 06/03/2018, 04/24/2007 ZOSTER VACCINE (1 of 2) 02/01/2042 RSV IMMUNIZATION (1 - 1-dose 75+ series) 02/01/2067 HEPATITIS C SCREENING Completed 03/11/2013 , 07/23/2012 IPV VACCINES Aged Out No longer eligi ble based on patient's age to complete this topic MENINGOCOCCAL B VACCINE Aged Out No l onger eligible based on patient's age to complete this topic PNEUMOCOCCAL VACCINE Aged Out No long er eligible based on patient's age to complete this topic Procedures Procedure Name Priority Date/Time Associated Diagnosis Comments HEPATITIS C ANTIBODY MATTHIAS 03/11/2013 2:06 PM EDT from Last 3 Months or Most Recently Relevant to Health Maintenance Results * Hepatitis C Antibody (03/11/2013 2:06 PM EDT) HCV Ab Qualitative Non Reac Non Reactive CONTACT LABORATORY FOR INFORMATION 03/11/2013 2:06 PM EDT 03/11/2013 4:20 PM EDT us Epic Conversion LAB BLOOD ORDERABLES Final Resul t CONTACT LABORATORY FOR INFORMATION from Last 3 Months or Most Recently Relevant to Health Maintenance Insurance [facility] [place] [id number] Care Teams Target Trimmer Relationship Specialty Start Date End Date No, MD Luis No Address [place] [address] PCP - General 10/28/15
--- OUTSIDE RECORDS SUMMARY | 2025-10-23 20:48 | XMS_ITS | Clinical Summary ---
Author Organization [facility] Address [address] [place] [address] Phone Care Team Providers Care Supervisor Fertilizer Name Role Phone Mayank Grimes MD Primary Care Provider Un available Allergies No known active allergies Medications No known medications Active Problems No known active problems Medical History Medical History Date Comments IBS (irritable bowel syndrome) Social History Tobacco Use Types Packs/Day Years Used Date Smoking Tobacco: Never Assessed Sex and Gender Information Value Date Recorded Sex Assigned at Not on file Legal Sex Male 3:50 AM EST Gender Identity Not on file Sexual Orientation Not on file Last Filed Vital Signs Vital Sign Reading Time Taken Comments Blood Pressure 133/90 03/31/2025 4:15 AM EDT Pulse 69 03/31/2025 4:15 AM EDT Temperature 36.9 C (98.4 F) 03/31/2025 4:15 AM EDT Respiratory Rate 16 03/31/2025 4:15 AM EDT Oxygen Saturation 97% 03/31/2025 4:15 AM EDT Inhaled Oxygen Concentration - - Weight 113 kg (250 lb) 03/30/2025 4:28 PM EDT Height 175.3 cm (5' 9 ) 03/30/2025 4:28 PM EDT Body Mass Index 36.92 03/30/2025 4:28 PM EDT Plan of Treatment Health Maintenance Due Date Last Done Comments DTaP,Tdap,and Td Vaccines (1 - Tdap) 02/01/2011 Hepatitis B Vaccines (1 of 3 - 19+ 3-dose series) 02/01/2011 HPV Vaccines (1 - 3-dose SCD M series) 02/01/2019 HIV Screening 10/15/2022 Social Influencers of Health Screening 10/15/2022 Depression Screening 11/12/2024 COVID-19 Vaccine (1 - 2024-2 6 season) 2025 Influenza Vaccine (#1) 2025 RSV Immunization Adult Patie nts (1 - 1-dose 75+ series) 02/01/2067 Hepatitis C Screening Completed 03/11/2013 HIB Vaccines Aged Out No longer eligi ble based on patient's age to complete this topic Hepatitis A Vaccines Aged Out No long er eligible based on patient's age to complete this topic IPV Vaccines Aged Out No longer eligi ble based on patient's age to complete this topic MMR Vaccines Aged Out No longer eligi ble based on patient's age to complete this topic Meningococcal ACWY Vaccine Aged Out N o longer eligible based on patient's age to complete this topic Meningococcal B Vaccine Aged Out No l onger eligible based on patient's age to complete this topic Pneumococcal Vaccine: Pediat rics (0 to 5 Years) and At-Risk Patients (6 to 49 Years) Aged Out No longer eligi ble based on patient's age to complete this topic RSV Immunization Patients Un vinod 20 months Aged Out No longer eligible b ased on patient's age to complete this topic Varicella Vaccines Aged Out No longer eligible based on patient's age to complete this topic Insurance [place] - [place] Care Teams Supervisor Fertilizer Relationship Specialty Start Date End Date Mayank Grimes MD Need Address Update PCP - General Family Medicine 10/20/24
--- OUTSIDE RECORDS SUMMARY | 2025-10-23 20:49 | XMS_ITS | Patient Health Record ---
Author Organization [facility] Address [address] [place] [address] Care Team Providers Care Development Associate Name Role Phone Faizan Mendoza Unavailable [phone] Reason For Referral No Information Medications Medication SIG (Take, Route, Frequency, Duration) Notes Start Date End Date Status Omeprazole *Pick strength-f orm from [employer] for eRX* Active Amitriptyline HCl *Pick strength -form from [employer] for eRX* Active Social History Social History Tobacco Use: Social Info Question Answer Notes Tobacco Use: Date tobacco status assessed 02/11/2021 Status: Former tobacco user Tobacco Exposure No exposure to secon dhand smoke/No smokers in household Additional Findings: Tobacco Non-User Current no n-smoker Section Notes: occasional marijuana . Plan Of Treatment Pending Test Test Name Order Date MRI Brain WO IV Contrast 09/25/2023 Insurance Providers Payer Name Payer Address Payer Phone Subscriber Number Group Number Insured Name Patient Relationship to Insured Coverage Start Date Coverage End Date [facility] [address] [place] [address] [phone] [id number] [place] Self - patient is the insured 3 Medical (General) History Medical History History ICD Code migraine IBS
== END 2025-10-23 19:27 | disposition home or self-care (01) ==
PROVIDERS: Physician Assistant Medical; Emergency Provider Emergency Medicine
DX: B34.9 Viral infection, unspecified (principal); R07.1 Chest pain on breathing; Z03.818 Encounter for observation for suspected exposure to other biological agents ruled out
CPT/HCPCS: 71046; 87637; 99282; 99283

== ENCOUNTER → 2025-10-23 16:32 | Outpatient (BNV) | payer MEDICAID, SELFPAY | PROVIDERS: Visit Provider Radiology Diagnostic Radiology | DX: R07.89 Other chest pain (principal) | CPT/HCPCS: 71046 ==